=== PATIENT | male | born 2000 | race Caucasian/White ===

== ENCOUNTER 2024-04-09 13:07 | Emergency (ER) | payer SELFPAY ==
[~2024-04-09] VITALS: Ht 188 cm; Wt 108.8 kg
[2024-04-09 13:19] VITALS: TEMP 97.9; O2SAT 100
[2024-04-09] MEDS: METOCLOPRAMIDE HCL 10MG TABLET PO NR (16:12)
[2024-04-09] MEDS ORDERED: KETOROLAC 15MG/ML VIAL IM ONE (16:15)
[2024-04-09] MEDS: KETOROLAC 15MG/ML VIAL IM NR (16:15)
[2024-04-09] MEDS ORDERED: METOCLOPRAMIDE HCL 5MG TABLET PO ONE (16:15)
[2024-04-09] MEDS ORDERED: NAPR-1176 MT (17:39)
[2024-04-09 18:18] VITALS: BP 126/87; PULSE 96; RESP 22; O2SAT 100
== END 2024-04-09 18:19 | disposition home or self-care (01) ==
LOC: ER 13:07
DX: R51.9 Headache, unspecified (principal); Z79.1 Long term (current) use of non-steroidal anti-inflammatories (NSAID)
CPT/HCPCS: 96372; 99283; J8597; J1885; Z7610